=== PATIENT | female | born 1955 | race Caucasian/White ===

== ENCOUNTER 2016-12-09 19:24 | Emergency (ER) | payer OTHER ==
[~2016-12-09] VITALS: Ht 165.1 cm; Wt 55.6 kg
[~2016-12-09 19:24] MED LIST: 1-ME1LIQ PO; ANTICRE6; ASPI81 PO; CIPR500T4 PO; FERR324T4 PO; HYDR10TA16 PO; HYDR12.56 PO; LISI30TA44 PO; METO25 PO; TRAM50TA PO; ZOCO10TA PO
[2016-12-09 19:39] VITALS: BP 141/73; PULSE 72; RESP 16; TEMP 98.9; O2SAT 96
--- NOTE | 2016-12-09 21:09 | PD ---
HPI Chief Complaint: Fall Time Seen by Provider: 21:09 Travel History International Travel<30 days: No Contact w/Intl Traveler<30days: No History of Present Illness HPI 61-year-old right-hand dominant female presents to the ED for evaluation approximately 24 hours after fall. Patient states she slipped in the doorway coming in from the rain. She states that she injured her right index finger but denies any other injury. She reports 5/10 pain of the index finger. She states that she washed the wound and applied a Band-Aid today. Unsure of the date of her last tetanus immunization. PFSH Past Medical History Asthma: No Autoimmune Disease: No Anxiety: No Depression: No Heart Rhythm Problems: No Cancer: No Cardiac Catheterization: No Cardiovascular Problems: No High Cholesterol: No Chemotherapy: No Chest Pain: No Congestive Heart Failure: No COPD: No Diabetes: No Diminished Hearing: No Endocrine: No GERD: No Genitourinary: No Hiatal Hernia: No Hypertension: Yes Immune Disorder: No Kidney Stones: No Musculoskeletal: No Neurologic: No Psychiatric: No Reproductive: No Respiratory: No Radiation Therapy: No Sickle Cell Disease: No Sleep Apnea: No Thyroid Disease: No Ulcer: No Past Surgical History Abdominal Surgery: No Arteriovenous Shunt: No Cardiac Surgery: No Ear Surgery: No Endocrine Surgery: No Eye Surgery: No Genitourinary Surgery: No Gynecologic Surgery: No Insulin Pump: No Oral Surgery: No Pacemaker: No Thoracic Surgery: No Social History Alcohol Use: Yes (1 GLASS OF WINE PER DAY) Tobacco Use: Yes (10 CIGS PER DAY) Substance Use: Yes (2 GLASSES 4X/WEEK) Allergies-Medications (Allergen,Severity, Reaction): Coded Allergies: Cipro (Verified Allergy, Intermediate, Swelling, 11/22/14) Face swelling Reported Meds & Prescriptions Reported Meds & Active Scripts Active Tylenol (Acetaminophen) 325 Mg Tab 650 Mg PO Q6H PRN Keflex (Cephalexin) 250 Mg Cap 250 Mg PO Q6H 10 Days Bactrim DS (Sulfamethoxazole-Trimethoprim) 800-160 Mg Tab 1 Tab PO BID Lisinopril 30 mg (Lisinopril) 30 Mg Tab 40 Mg PO DAILY 1-Methyl 2-Pyrrolidinone (1-Methyl 2-Pyrrolidone (Bulk)) 10 Mg Tab 10 Mg PO DAILY Hydrochlorothiazide (Miscellaneous Medication) 12.5 Mg Cap 5 Mg PO DAILY Cipro (Ciprofloxacin HCl) 500 Mg Tab 500 Mg PO BID Reported [Antibiotic] Zocor 10 mg (Simvastatin) 10 Mg Tab 10 Mg PO HS Metoprolol Tartrate 25 mg (Metoprolol Tartrate) 25 Mg Tab 25 Mg PO BID Lortab 10/500 (Acetaminophen/Hydrocodone Bitart) 10 Mg/500 Mg Tab 1 Tab PO Q8HPRN FOR PAIN Tramadol Hcl (Tramadol HCl) 50 Mg Tab 50 Mg PO Q8HPRN 14 Days Aspirin 81 Mg Tab 81 Mg PO DAILY Ferrous Sulfate 325 Mg Tab 325 PO BID 14 Days UNKNOWN DOSE Review of Systems Except as stated in HPI: all other systems reviewed are Neg Physical Exam Narrative GENERAL: Well-nourished, well-developed white female in no acute distress. SKIN: Warm and dry. There is a 1.5 cm defect in the skin of the ulnar aspect of the distal tip of the 2nd finger of the right hand. There is a superficial abrasion of the ulnar aspect of the right 5th metacarpal. There is an area of superficial abrasion on the right hip. Thorough evaluation reveals no other edema, ecchymosis, abrasion, or laceration of the skin. HEAD: Normocephalic. Atraumatic. No raccoon eyes or raman sign. No tenderness to palpation of the skull. No bony step-offs. No malocclusion of the teeth. EYES: No scleral icterus. No injection or drainage. PERRLA. EOMI. ENT: Pearly hagan tympanic membrane is bilaterally. Nasal mucosa is moist. Oropharynx without erythema, edema or exudate. NECK: Supple, trachea midline. No JVD or lymphadenopathy. No midline tenderness to palpation. Patient retains full, active, painless range of motion of the neck. CARDIOVASCULAR: Regular rate and rhythm without murmurs, gallops, or rubs. 2+ DP and radial pulses bilaterally. RESPIRATORY: Breath sounds clear and equal bilaterally. No accessory muscle use. GASTROINTESTINAL: Abdomen soft, non-tender, nondistended. + Bowel sounds MUSCULOSKELETAL: No cyanosis, or edema. No tenderness to palpation or limitations to range of motion of the joints of the upper and lower extremities bilaterally. FOCUSED RIGHT UPPER EXTREMITY EXAM: 2+ radial pulse. Patient maintains full, active, painless range of motion of all the digits of the right hand. Sensation intact to light touch distally, cap refill less than 2 seconds on each digit. NEUROLOGICAL: Awake and alert. Cranial nerves II through XII intact. Motor and sensory grossly within normal limits. 5/5 muscle strength in all muscle groups. Normal speech. BACK: Nontender without obvious deformity. No CVA tenderness. No midline tenderness. Data Data Last Documented VS Vital Signs Date Time Temp Pulse Resp B/P Pulse Ox O2 Delivery O2 Flow Rate FiO2 12/09/16 21:12 98.9 72 16 141/73 96 Orders Tetanus/Diphtheria Tox Adult (Tetanus/Di (12/09/16 21:15) Lidocaine 1% Inj (50 Ml) (Xylocaine 1% I (12/09/16 21:15) Finger ([id number]) (12/09/16 21:15) Ice/Cold Pack (12/09/16 21:15) Sulfamet-Trimeth Ds 800-160 Mg (Bactrim (12/09/16 22:30) Cephalexin (Keflex) (12/09/16 22:30) Ibuprofen (Motrin) (12/09/16 22:30) MDM Medical Decision Making Medical Screen Exam Complete: Yes Emergency Medical Condition: Yes Differential Diagnosis laceration versus fracture versus osteomyelitis versus other Narrative Course 1-year-old right-hand dominant female presents to the ED for evaluation approximately 24 hours after fall. Patient states she slipped in the doorway coming in from the rain. She states that she injured her right index finger but denies any other injury. She reports 5/10 pain of the index finger. She states that she washed the wound and applied a Band-Aid today. Unsure of the date of her last tetanus immunization. Vitals reviewed. Physical exam reveals a 1.5 summary defect in the skin of the ulnar aspect of the distal tip of the second finger of the right hand. It is superficial abrasion of the ulnar aspect of the right fifth metacarpal. Patient retains full, active, painless range of motion of the extremity. Neurovascularly intact. Tetanus immunization was updated. X-rays reveal no acute bony injury per radiology read. Wound exploration was performed. Please see my procedure note for details. A wet-to-dry dressing was applied. She was prescribed Bactrim and Keflex, first dose is administered in the ED. Patient was given detailed wound care instructions, instructed to follow-up with her primary care provider for possible wound management. She indicated understanding of the discharge instructions and is agreeable to the care plan. The patient is stable and discharged home. Procedures Procedure Narrative Wound exploration: Digital block of the second digit of the right hand was performed with 1% lidocaine. Adequate anesthesia was obtained. The patient was prepped with Betadine and draped in a sterile fashion. The wound was copiously irrigated with 500 mL of normal saline. There is a 1.5 cm defect in the skin of the ulnar aspect of the distal tip of the second finger of the right hand. Exploration of the wound reveals a 2 mm defect of the ulnar aspect of the lateral nail fold. No nail avulsion. The wound penetrates approximately 2-3 mm. No bony involvement. The wound was again irrigated with approximately 250 ML's of saline. A wet to dry dressing was applied. The patient tolerated the procedure well. She is instructed to keep the wound clean, dry and covered. Diagnosis Primary Impression: Laceration of finger of right hand Qualified Code: S61.219A - Laceration of finger of right hand, initial encounter Referrals: Primary Care Physician Patient Instructions: Acute Wound Care (ED), General Instructions Additional Instructions: Rest, ice, elevate the extremity. Apply ice no longer than 10-15 minutes per hour a few times a day. Keep the wound clean, dry and covered. Washing hands before and after touching the wound. Change the dressing any time becomes wet or soiled. 650 Tylenol up to 3 times a day as needed for pain. Take all antibiotics as prescribed. Monitor for signs of infection as discussed. Follow-up with your primary care provider this week. Return to the ED for any urgent or emergent medical condition. Med/Other Pt SpecificInfo: Prescription(s) given Scripts Acetaminophen (Tylenol)325 Mg [id number] Mg PO Q6H PRN (PAIN SCALE 1 TO 10) #20 TAB Ref 0 Prov:Luis M Castle MD 12/09/16 Cephalexin (Keflex)250 Mg [id number] Mg PO Q6H 10 Days Ref 0 Prov:Luis M Castle MD 12/09/16 Sulfamethoxazole-Trimethoprim (Bactrim DS)800-160 Mg Tab1 Tab PO BID #14 TAB Ref 0 Prov:Luis M Castle MD 12/09/16 Disposition: 01 DISCHARGE HOME Condition: Stable Brielle Farmer Dec 09, 2016 21:09
[2016-12-09 21:12] VITALS: BP 141/73; PULSE 72; RESP 16; TEMP 98.9; O2SAT 96
[2016-12-09] MEDS ORDERED: LIDOCAINE HCL 1% 50 ML VIAL INFIL ONE (21:15)
[2016-12-09] MEDS ORDERED: TETANUS/DIPHTHERIA TOXOID ADULT 0.5 ML VIAL IM ONE (21:15)
--- NOTE | 2016-12-09 22:25 | RADHPO ---
EXAM DATE/TIME: 12/09/2016 21:34 [facility] COMPARISON: No previous studies available for comparison. INDICATIONS : Right hand, second digit pain after fall. MEDICAL HISTORY : None. SURGICAL HISTORY : None. ENCOUNTER: Initial ACUITY: 1 day PAIN SCORE: 6/10 LOCATION: Right hand, distal second digit FINDINGS: Examination of the second digit of the right hand demonstrates no evidence of fracture or dislocation . No radiopaque foreign bodies are seen. The soft tissues are intact. CONCLUSION: 1. No acute findings. 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 Juan Carlos Swan MD on December 09, 2016 at 22:22 Board Certified Radiologist. This report was verified electronically.
[2016-12-09] MEDS ORDERED: TYLE325T PO (22:27)
[2016-12-09] MEDS ORDERED: CEPH-459 PO (22:27)
[2016-12-09] MEDS ORDERED: BACT800T5 PO (22:27)
[2016-12-09] MEDS ORDERED: CEPHALEXIN MONOHYDRATE 500 MG CAP PO ONE (22:30)
[2016-12-09] MEDS ORDERED: IBUPROFEN 600 MG TAB PO ONE (22:30)
[2016-12-09] MEDS ORDERED: SULFAMETHOXAZOLE-TRIMETHOPRIM DS 800-160 MG TAB PO ONE (22:30)
[2016-12-17] MEDS ORDERED: PROP10TA6 PO (09:02)
== END 2016-12-09 22:54 | disposition home or self-care (01) ==
LOC: PHED 19:24 → PHEFT 22:54
DX: S61.210A Laceration without foreign body of right index finger without damage to nail, initial encounter (principal); S70.211A Abrasion, right hip, initial encounter; I10 Essential (primary) hypertension; F17.210 Nicotine dependence, cigarettes, uncomplicated; W01.198A Fall on same level from slipping, tripping and stumbling with subsequent striking against other object, initial encounter; Y93.01 Activity, walking, marching and hiking; Y92.008 Other place in unspecified non-institutional (private) residence as the place of occurrence of the external cause; Z23 Encounter for immunization
CPT/HCPCS: 64450; 73140; 90471; 90714

== ENCOUNTER 2017-11-05 15:50 | Emergency (ER) | payer OTHER ==
[~2017-11-05] VITALS: Ht 165.1 cm; Wt 57.0 kg
[~2017-11-05 15:50] MED LIST changes: -1-ME1LIQ PO; -ANTICRE6; -ASPI81 PO; +BACT800T5 PO; +CEPH-459 PO; -CIPR500T4 PO; -FERR324T4 PO; -HYDR10TA16 PO; -LISI30TA44 PO; -METO25 PO; +PROP10TA6 PO; -TRAM50TA PO; +TYLE325T PO; -ZOCO10TA PO
[2017-11-05 15:54] VITALS: BP 147/79; PULSE 84; RESP 16; TEMP 98; O2SAT 95
[2017-11-05] MEDS ORDERED: SODIUM CHLORIDE 0.9% FLUSH 10 ML FLUSH IVF PRN (16:15)
[2017-11-05] MEDS ORDERED: cefTRIAXone INJ 1,000 MG in SODIUM CHLORIDE 0.9% INJ 100 ML IV ONE (16:15)
[2017-11-05] MEDS ORDERED: AZITHROMYCIN INJ 500 MG in SODIUM CHLOR 0.9% 250 ML INJ 250 ML IV ONE (16:15)
[2017-11-05 16:22] VITALS: BP 173/76; PULSE 72; RESP 16; O2SAT 95
[2017-11-05] MEDS ORDERED: AMLO2.5T PO (16:27)
[2017-11-05] MEDS ORDERED: LORA1TAB12 PO (16:27)
[2017-11-05] MEDS ORDERED: HYDR25TA5 PO (16:27)
--- NOTE | 2017-11-05 16:35 | PD ---
HPI . Chest pain Chief Complaint: Chest Pain Time Seen by Provider: 15:58 Travel History International Travel<30 days: No Contact w/Intl Traveler<30days: No Traveled to known affect area: No History of Present Illness HPI This patient presents with a 1-1.5 week history of chest pain. It is diffuse lower abdominal chest pain. She also has a cough with minimal sputum production and subjective fevers and chills. She states that she was seen by her primary care provider earlier today he noticed with pneumonia. She was given prescriptions for probably Augmentin as well as steroids. She knows that the first part of the name of the antibiotic is amoxicillin and that there is a - after the word amoxicillin. She states that she has taken one dose of both the steroids and the antibiotic. She states that she presents to us because of the chest pain. She states that they did an EKG in the office and noted it to be abnormal as compared to her previous EKG. Patient states that she has been taking Zyrtec and Delsym with no relief of her cough. She rates her chest plain as 8/10. PFSH Past Medical History Asthma: No Autoimmune Disease: No Anxiety: Yes Depression: No Heart Rhythm Problems: No Cancer: No Cardiac Catheterization: No Cardiovascular Problems: Yes High Cholesterol: No Chemotherapy: No Chest Pain: No Congestive Heart Failure: No COPD: No Diabetes: No Diminished Hearing: No Endocrine: No GERD: No Genitourinary: No Hiatal Hernia: No Hypertension: Yes Immune Disorder: No Kidney Stones: No Musculoskeletal: No Neurologic: No Psychiatric: No Reproductive: No Respiratory: No Radiation Therapy: No Sickle Cell Disease: No Sleep Apnea: No Thyroid Disease: No Ulcer: No Tetanus Vaccination: < 5 Years Influenza Vaccination: No Menopausal: Yes Past Surgical History Abdominal Surgery: No Arteriovenous Shunt: No Cardiac Surgery: Yes (CABG) Ear Surgery: No Endocrine Surgery: No Eye Surgery: No Genitourinary Surgery: No Gynecologic Surgery: No Insulin Pump: No Oral Surgery: No Pacemaker: No Thoracic Surgery: No Social History Alcohol Use: Yes (1 GLASS OF WINE PER DAY) Tobacco Use: No Substance Use: No Allergies-Medications (Allergen,Severity, Reaction): Coded Allergies: ciprofloxacin (Unverified Allergy, Intermediate, Swelling, 04/20/17) Face swelling Reported Meds & Prescriptions Reported Meds & Active Scripts Active [place] (Hydrocodone-Acetaminophen) 5 Mg-325 Mg Tab 1 Tab PO Q4H PRN Zithromax (Azithromycin) 250 Mg Tab 250 Mg PO DAILY 4 Days Tylenol (Acetaminophen) 325 Mg Tab 650 Mg PO Q6H PRN Reported Lorazepam 1 Mg Tab 1 Mg PO DAILY PRN Amlodipine (Amlodipine Besylate) 2.5 Mg Tab 2.5 Mg PO HS Hydrochlorothiazide 25 Mg Tab 25 Mg PO DAILY Review of Systems Except as stated in HPI: all other systems reviewed are Neg General / Constitutional: Positive: Fever, Chills Cardiovascular: Positive: Chest Pain or Discomfort Respiratory: Positive: Cough Physical Exam Narrative GENERAL: Patient looks well. SKIN: warm/dry. Normal color and turgor. HEAD: Normocephalic. Atraumatic. EYES: Pupils equal and round. No scleral icterus. No injection or drainage. ENT: No nasal bleeding or discharge. Mucous membranes pink and moist. NECK: Trachea midline. Full range of motion without pain.. CARDIOVASCULAR: Regular rate and rhythm. Heart sounds are normal. RESPIRATORY: No accessory muscle use. Clear to auscultation. Breath sounds equal bilaterally. GASTROINTESTINAL: Abdomen soft. Nontender. Bowel sounds present. Nondistended. MUSCULOSKELETAL: No obvious deformities. NEUROLOGICAL: Awake and alert. No obvious cranial nerve deficits. Motor grossly within normal limits. Normal speech. PSYCHIATRIC: Appropriate mood and affect; insight and judgment normal. Data Data Last Documented VS Vital Signs Date Time Temp Pulse Resp B/P (MAP) Pulse Ox O2 Delivery O2 Flow Rate FiO2 11/05/17 17:51 75 18 130/63 (85) 96 Room Air 11/05/17 16:22 2.00 11/05/17 15:54 98.0 Orders Orders Electrocardiogram (11/05/17 16:05) Basic Metabolic Panel (Bmp) (11/05/17 16:05) Complete Blood Count With Diff (11/05/17 16:05) Lactic Acid Sepsis Protocol (11/05/17 16:05) Blood Culture (11/05/17 16:05) Chest, Pa & Lat (11/05/17 16:05) Iv Access Insert/Monitor (11/05/17 16:05) Sodium Chloride 0.9% Flush (Ns Flush) (11/05/17 16:15) Ceftriaxone Inj (Rocephin Inj) (11/05/17 16:15) Azithromycin Inj (Zithromax Inj) (11/05/17 16:15) Troponin I (11/05/17 16:05) Acetamin-Hydrocod 325-5 Mg ([place] 5-325 (11/05/17 17:30) Labs Laboratory Tests Test 11/05/17 16:25 11/05/17 16:30 White Blood Count 7.4 TH/MM3 Red Blood Count 3.57 MIL/MM3 Hemoglobin 14.4 GM/DL Hematocrit 39.9 % Mean Corpuscular Volume 111.5 FL Mean Corpuscular Hemoglobin 40.2 PG Mean Corpuscular Hemoglobin Concent 36.0 % Red Cell Distribution Width 12.5 % Platelet Count 191 TH/MM3 Mean Platelet Volume 8.4 FL Neutrophils (%) (Auto) 85.3 % Lymphocytes (%) (Auto) 11.3 % Monocytes (%) (Auto) 2.6 % Eosinophils (%) (Auto) 0.2 % Basophils (%) (Auto) 0.6 % Neutrophils # (Auto) 6.3 TH/MM3 Lymphocytes # (Auto) 0.8 TH/MM3 Monocytes # (Auto) 0.2 TH/MM3 Eosinophils # (Auto) 0.0 TH/MM3 Basophils # (Auto) 0.0 TH/MM3 CBC Comment AUTO DIFF Differential Comment AUTO DIFF CONFIRMED Blood Urea Nitrogen 25 MG/DL Creatinine 1.30 MG/DL Random Glucose 281 MG/DL Calcium Level 9.7 MG/DL Sodium Level 136 MEQ/L Potassium Level 3.8 MEQ/L Chloride Level 101 MEQ/L Carbon Dioxide Level 27.9 MEQ/L Anion Gap 7 MEQ/L Estimat Glomerular Filtration Rate 41 ML/MIN Troponin I LESS THAN 0.02 NG/ML Lactic Acid Level 1.8 mmol/L [facility] Medical Decision Making Medical Screen Exam Complete: Yes Emergency Medical Condition: Yes Medical Record Reviewed: Yes (medical history is positive for hypertension and coronary artery disease. She is status post a CABG.) Interpretation(s) EKG shows a sinus rhythm. She has left atrial enlargement and left ventricular hypertrophy associated STT wave changes. She has a single PVC. I do not see any acute ischemic changes. Differential Diagnosis Differential diagnosis of chest pain includes but is not limited to musculoskeletal pain, pulmonary embolism, acute coronary syndrome, pneumonia, pleurisy Narrative Course This patient presents for the evaluation of chest pain. She has had chest pain for a week and a half. She has a working diagnosis of pneumonia and was prescribed an antibiotic and steroids today. She has her EKG from her primary care provider and I don't see any acute ischemic changes. CXR>>Medial left lower lobe airspace consolidation concerning for pneumonia. CBC & BMP Diagram 11/05/17 16:25 Calcium Level 9.7 LA 1.8 She does not meet SIRS/septic criteria. She is maintaining an oxygen saturation of 95% on room air with a respiratory rate of 16. She does not meet criteria for hospitalization. The history, exam, diagnostic testing, and current condition do not suggest any significant pathology to warrant further testing, continued ED treatment, admission, or surgical evaluation at this point. No EMC was found. The patient 's condition is stable and appropriate for discharge. Diagnosis Primary Impression: Pneumonia Qualified Codes: J18.1 - Lobar pneumonia, unspecified organism Patient Instructions: Bacterial Pneumonia (GEN), General Instructions Med/Other Pt SpecificInfo: Prescription(s) given Scripts Hydrocodone-Acetaminophen ([place]) 5 Mg-325 Mg Tab 1 TAB PO Q4H Y for PAIN, #12 TAB 0 Refills Prov: China Vallejo MD 11/05/17 Azithromycin (Zithromax) 250 Mg Tab 250 MG PO DAILY for Infection for 4 Days, #4 TAB 0 Refills Prov: China Vallejo MD 11/05/17 Disposition: 01 DISCHARGE HOME Condition: Stable China Vallejo MD Nov 05, 2017 16:35
[2017-11-05 16:52] LABS: AUTOMATED NEUTROPHIL # 6.3 TH/MM3 (1.8-7.7); BASOPHIL % 0.6 % (0.0-2.0); EOSINOPHIL % 0.2 % (0.0-4.0); HEMATOCRIT 39.9 % (35.0-46.0); HEMOGLOBIN 14.4 GM/DL (11.6-15.3); LYMPH % 11.3 % (9.0-44.0); LYMPHOCYTE # 0.8 TH/MM3 (1.0-4.8); MEAN CELL VOLUME 111.5 FL (80.0-100.0); MEAN CORPUSCULAR HEMOGLOBIN 40.2 PG (27.0-34.0); MEAN PLATELET VOLUME 8.4 FL (7.0-11.0); MONO % 2.6 % (0.0-8.0); MONOCYTE # 0.2 TH/MM3 (0-0.9); NEUT % 85.3 % (16.0-70.0); PLATELET COUNT 191 TH/MM3 (150-450); RED BLOOD COUNT 3.57 MIL/MM3 (4.00-5.30); RED CELL DISTRIBUTION WIDTH 12.5 % (11.6-17.2); WHITE BLOOD COUNT 7.4 TH/MM3 (4.0-11.0)
[2017-11-05 17:09] LABS: BICARBONATE 27.9 MEQ/L (21.0-32.0); BLOOD UREA NITROGEN 25 MG/DL (7-18); CALCIUM 9.7 MG/DL (8.5-10.1); CHLORIDE 101 MEQ/L (98-107); GLOMERULAR FILTRATION RATE 41 ML/MIN (>89); GLUCOSE,RANDOM 281 MG/DL (74-106); SODIUM (NA) 136 MEQ/L (136-145)
[2017-11-05 17:11] LABS: TROPONIN I LESS THAN 0.02 NG/ML (0.02-0.05)
--- NOTE | 2017-11-05 17:20 | RADRPT ---
EXAM DATE/TIME: 11/05/2017 16:58 [facility] COMPARISON: No previous studies available for comparison. INDICATIONS : Patient complains of cough and shortness of breath. MEDICAL HISTORY : None. SURGICAL HISTORY : None. ENCOUNTER: Initial ACUITY: 1 day PAIN SCORE: 0/10 LOCATION: chest FINDINGS: Medial left lower lobe airspace consolidation. Lungs are hyperexpanded with diffuse interstitial prom inence. Cardiomediastinal contours are within normal limits. Postsurgical fissure prior cardiac surge ry. Bony thorax is intact. CONCLUSION: 1. Medial left lower lobe airspace consolidation concerning for pneumonia. Chris Zarco MD on November 05, 2017 at 17:18 Board Certified Radiologist. This report was verified electronically.
[2017-11-05] MEDS ORDERED: ZITH250T PO (17:30)
[2017-11-05] MEDS ORDERED: NORC5TAB PO (17:30)
[2017-11-05] MEDS ORDERED: ACETAMINOPHEN/HYDROcodone 325 MG/5 MG TAB PO ONE (17:30)
[2017-11-05 17:51] VITALS: BP 130/63; PULSE 75; RESP 18; O2SAT 96
--- NOTE | 2017-11-06 09:20 | EKG ---
Date Performed: 11/05/2017 Time Performed: 17:06:48 PTAGE: 62 years EKG: Sinus rhythm WITH OCCASIONAL VENTRICULAR PREMATURE COMPLEXES POSSIBLE LEFT ATRIAL ENLARGEMENT LEFT VENTRICULAR HY PERTROPHY AND ST-T CHANGE POSSIBLE SEPTAL MYOCARDIAL INFARCTION ABNORMAL ECG PREVIOUS TRACING : 02/20/2014 21.20 DOCTOR: Vincenzo Jordan Interpretating Date/Time 11/06/2017 09:19:01
== END 2017-11-05 18:31 | disposition home or self-care (01) ==
LOC: NEPE 15:50
DX: J18.1 Lobar pneumonia, unspecified organism (principal); I10 Essential (primary) hypertension; Z95.1 Presence of aortocoronary bypass graft; Z88.1 Allergy status to other antibiotic agents
CPT/HCPCS: 71046; 80048; 83605; 84484; 85025; 87040; 93005; 96365; 96368; 99285; J0456; J0696; J7050